=== PATIENT | male | born 1950 | race Caucasian/White ===

== ENCOUNTER 2020-10-31 08:09 | Observation (INO) | payer OTHER, MEDICARE ==
[2020-10-31] MEDS ORDERED: Sodium Chloride 0.9% 1000 ML 1,000 ML ONE ×3 (08:21→13:31)
[2020-10-31] MEDS ORDERED: PROTONIX 40 MG IV IV ONE ×2 (08:31→09:09)
[2020-10-31] MEDS ORDERED: Sodium Chloride 0.9% 1000 ML 1,000 ML IV STA ×3 (09:08→13:29)
[2020-10-31 09:10] LABS: Absolute Neutrophil Ct (ANC) 4.07 (1.4-6.9); BASOPHIL % 0.2 % (0.0-0.4); Basophil (Absolute #) 0.01 (0-0.4); Eosinophil % 0.4 % (0.00-5.0); Eosinophil (Absolute #) 0.02 (0-0.5); Hematocrit 36.5 % (42-50); Hemoglobin 11.7 gm/dl (12.5-18.0); Lymphocytes % 4.5 % (24.0-44.0); Mean Cell Volume 86.1 fl (78-100); Mean Corpuscular Hemoglobin 27.6 pg (26-32); Mean Corpuscular Hgb Concent. 32.1 g/dl (32-36); Mean Platelet Volume 10.1 fl (7.5-11.0); Monocyte (Absolute #) 0.17 (0.0-1.3); Monocytes % 3.8 % (0.0-12.0); Neutrophil % 91.1 % (36.0-66.0); Platelet Count 108 K/mm3 (150-450); Red Blood Count 4.24 M/mm3 (4.1-5.6); Red Cell Distribution Width 14.9 % (11.5-14.0); White Blood Count 4.5 K/mm3 (4.0-10.5)
[2020-10-31 09:35] LABS: ALBUMIN 3.8 g/dL (3.5-5.0); ALKALINE PHOSPHATASE 105 U/L (38-126); ANION GAP 12.9 MEQ/L (5-15); BLOOD UREA NITROGEN 24 mg/dL (9-20); CHLORIDE 102 mmol/L (98-107); Calcium 8.8 mg/dL (8.4-10.2); Carbon Dioxide 21 mmol/L (22-30); Creatinine 1 1.07 mg/dL (0.66-1.25); EST GLOMERULAR FILTRATION RATE > 60.0 ML/MIN; Glucose 137 mg/dL (74-106); LIPASE 118 U/L (23-300); MAGNESIUM 1.3 mg/dL (1.6-2.3); Potassium 3.6 mmol/L (3.5-5.1); SGOT/AST 52 U/L (17-59); SGPT/ALT 35 U/L (0-50); SODIUM 132 mmol/L (137-145); Total Protein 6.5 g/dL (6.3-8.2)
[2020-10-31] MEDS ORDERED: Magnesium 1 Gm / 100 Ml D5W*** 100 ML IV ONE ×2 (10:39→11:23)
[2020-10-31] MEDS: Magnesium 1 Gm / 100 Ml D5W*** 100 ML IV SCH ×2 (10:44→11:24)
[2020-10-31] MEDS ORDERED: LEVOFLOXACIN 750MG/150ML D5W 750 MG/150 ML BAG IV STA (10:58)
--- NOTE | 2020-10-31 10:58 | ERPHSYRPT ---
- History of Present Illness Time Seen by Provider: 10/31/20 08:27 Historian: patient Exam Limitations: no limitations Patient Subjective Stated Complaint: pt for vomiting, and weakness since last night, pt has had problems with hes stomach for a month now and had a scope that was negative, and a ct scan [place] [facility] [place]. Triage Nursing Assessment: pt arrived per ems alert, but poor historian, skin w/d/p, resp easy, placed on o2 at 2 l nc , abd soft Physician History: 70 years old male with a history of diabetes mellitus, Whipple procedure presented to the ER with chief complaint of upper abdominal pain and vomiting off and on since last evening along with generalized weakness fatigue tiredness. Patient is hypotensive when EMS picked him up with pressure around 80s and currently low 90s after 500 mL bag of fluid. Denies any chest pain or palpitations/shortness of breath but his oxygen saturation is dropping to upper 80s, currently on 2 L and 99% denies fever or chills. No known sick contact. Is vaccinated against Kovic 19. Timing/Duration: yesterday, gradual onset, worse Activities at Onset: rest Quality: dullness, sharpness Abdominal Pain Onset Location: RUQ, epigastric, periumbilical Pain Radiation: no radiation Severity of Pain-Max: moderate Severity of Pain-Current: mild Modifying Factors: Improves With: nothing Associated Symptoms: nausea, vomiting Allergies/Adverse Reactions: erythromycin base [From Erythrocin] Allergy (Verified 10/31/20 09:05) Penicillins Allergy (Verified 10/31/20 09:05) Home Medications: Amitriptyline HCl 25 mg [Elavil 25 mg] 1 ea PO HS 10/31/20 [History] Hydrocodone Bit/Acetaminophen [Hydrocodon-Acetaminophn 10-325] 1 ea TID 10/31/20 [History] Metformin HCl 500 mg [Glucophage 500 MG] 500 mg PO BID 10/31/20 [History] Hx Influenza Vaccination/Date Given: No Hx Pneumococcal Vaccination/Date Given: No Immunizations Up to Date: Yes Travel Risk - International Travel Have you traveled outside of the country in past 3 weeks: No - Coronavirus Screening Are you exhibiting any of the following symptoms?: Yes Symptoms: Vomiting/Diarrhea Close contact with a COVID-19 positive Pt in past 14-21 Days: No - Vaccine Status Have you recieved a Covid-19 vaccination: Yes [employer]: Moderna - Vaccination Dates Date of 2cond Vaccination (if applicable): ? - Review of Systems Constitutional: Fatigue, Weakness Eyes: No Symptoms Ears, Nose, & Throat: No Symptoms Respiratory: No Symptoms Cardiac: No Symptoms Abdominal/Gastrointestinal: Abdominal Pain, Nausea, Vomiting Genitourinary Symptoms: No Symptoms Musculoskeletal: Back Pain Skin: No Symptoms Neurological: No Symptoms Psychological: No Symptoms Endocrine: No Symptoms Hematologic/Lymphatic: No Symptoms Immunological/Allergic: No Symptoms - Past Medical History Pertinent Past Medical History: Yes Cardiac History: High Cholesterol Endocrine Medical History: Diabetes Type II - Past Surgical History Past Surgical History: Yes Gastrointestinal: Cholecystectomy, Other Musculoskeletal: Orthopedic Surgery Other Surgical History: back/neck ,wipple - Social History Smoking Status: Never smoker Exposure to second hand smoke: No Drug Use: none Patient Lives Alone: No - Nursing Vital Signs Nursing Vital Signs: Initial Vital Signs Temperature 99.7 F 10/31/20 08:19 Pulse Rate 120 H 10/31/20 08:19 Respiratory Rate 18 10/31/20 08:19 Blood Pressure 91/51 10/31/20 08:19 O2 Sat by Pulse Oximetry 94 L 10/31/20 08:19 Pain Scale Pain Intensity 0 - Physical Exam General Appearance: no apparent distress, alert Eye Exam: PERRL/EOMI, eyes nml inspection Ears, Nose, Throat Exam: normal ENT inspection, TMs normal, pharynx normal, moist mucous membranes Neck Exam: normal inspection, non-tender, supple, full range of motion Respiratory Exam: normal breath sounds, chest tenderness Cardiovascular Exam: normal heart sounds, tachycardia Back Exam: normal inspection, normal range of motion, CVA tenderness Extremity Exam: normal inspection, normal range of motion Neurologic Exam: alert, oriented x 3, cooperative, rodding machine tender II-XII nml as tested, sensation nml, No normal mood/affect Skin Exam: normal color SpO2 Interpretation: normal SpO2: 98 O2 Delivery: Room Air - Course EKG Interpreted by Me: RATE (120), Sinus Tach, NORMAL AXIS, NORMAL INTERVALS, Q- wave (Inferior), Non-specific ST Changes, Other (PVCs) Ordered Tests: Medication Summary Discontinued Medications Generic Name Dose Route Start Last Admin Trade Name Freq PRN Reason Stop Dose Admin Acetaminophen 650 mg 10/31/20 14:20 10/31/20 16:36 Tylenol 325 Mg PO 11/30/20 14:19 650 mg Q4H PRN PRN Administration PAIN AND/OR FEVER Hydrocodone Bitart/Acetaminophen 1 tablet 10/31/20 15:30 11/01/20 15:43 Hydrocodone-Acetamin 10-325 Mg PO 11/05/20 15:29 1 tablet TID SEVEN Administration Amitriptyline HCl 25 mg 10/31/20 22:00 10/31/20 21:15 Elavil 25 Mg PO 11/30/20 21:59 25 mg HS SEVEN Administration Sodium Chloride Confirm 10/31/20 08:21 Sodium Chloride 0.9% 1000 Ml Administered 10/31/20 08:22 Dose 1,000 mls @ ud .ROUTE .STK-MED ONE Sodium Chloride 1,000 mls @ 999 mls/hr 10/31/20 09:08 10/31/20 10:25 Sodium Chloride 0.9% 1000 Ml IV 10/31/20 10:08 Infused .Q1H1M STA Infusion Sodium Chloride Confirm 10/31/20 10:19 Sodium Chloride 0.9% 1000 Ml Administered 10/31/20 10:20 Dose 1,000 mls @ ud .ROUTE .STK-MED ONE Sodium Chloride 1,000 mls @ 999 mls/hr 10/31/20 10:22 10/31/20 11:29 Sodium Chloride 0.9% 1000 Ml IV 10/31/20 11:22 Infused .Q1H1M STA Infusion Magnesium Sulfate/Dextrose 100 mls @ 100 mls/hr 10/31/20 10:45 10/31/20 11:24 Magnesium 1 Gm / 100 Ml D5w IV 10/31/20 12:44 100 mls/hr Q1H SEVEN Administration Levofloxacin/Dextrose 750 mg in 150 mls @ 100 mls/hr 10/31/20 10:58 10/31/20 13:27 Levofloxacin 750mg/150ml D5w IV 10/31/20 12:27 Infused STAT STA Infusion Levofloxacin/Dextrose Confirm 10/31/20 11:56 Levofloxacin 750mg/150ml D5w Administered 10/31/20 11:57 Dose 750 mg in 150 mls @ ud IV .STK-MED ONE Sodium Chloride 1,000 mls @ 999 mls/hr 10/31/20 13:29 10/31/20 13:32 Sodium Chloride 0.9% 1000 Ml IV 10/31/20 14:29 999 mls/hr .Q1H1M STA Administration Sodium Chloride Confirm 10/31/20 13:31 Sodium Chloride 0.9% 1000 Ml Administered 10/31/20 13:32 Dose 1,000 mls @ ud .ROUTE .STK-MED ONE Magnesium Sulfate/Dextrose Confirm 10/31/20 10:39 Magnesium 1 Gm / 100 Ml D5w Administered 10/31/20 10:40 Dose 100 mls @ ud IV .STK-MED ONE Magnesium Sulfate/Dextrose Confirm 10/31/20 11:23 Magnesium 1 Gm / 100 Ml D5w Administered 10/31/20 11:24 Dose 100 mls @ ud IV .STK-MED ONE Potassium Chloride/Sodium Chloride 1,000 mls @ 125 mls/hr 10/31/20 14:20 11/01/20 05:55 Sodium Chloride 0.9% W/ 20 Meq Kcl/Liter IV 11/30/20 14:19 125 mls/hr .Q8H SEVEN Administration Levofloxacin/Dextrose 500 mg in 100 mls @ 100 mls/hr 10/31/20 15:00 11/01/20 08:58 Levofloxacin 500mg/100ml D5w IV 11/30/20 14:59 100 mls/hr Q24H10 SEVEN Administration Insulin Human Lispro 0 unit 10/31/20 14:20 Humalog SQ 11/30/20 14:19 UD PRN HYPERGLYCEMIA Metformin HCl 500 mg 10/31/20 17:00 11/01/20 08:58 Glucophage 500 Mg PO 11/30/20 16:59 500 mg BIDWM SEVEN Administration Ondansetron HCl 4 mg 10/31/20 14:20 Zofran 4 Mg/2 Ml Vial IV 11/30/20 14:19 Q6H PRN PRN NAUSEA/VOMITING Pantoprazole Sodium 40 mg 10/31/20 08:31 10/31/20 09:09 Protonix 40 Mg Iv IV 10/31/20 08:32 40 mg STAT ONE Administration Pantoprazole Sodium Confirm 10/31/20 09:09 Protonix 40 Mg Iv Administered 10/31/20 09:10 Dose 40 mg IV .STK-MED ONE Pantoprazole Sodium 40 mg 11/01/20 10:00 11/01/20 08:59 Protonix 40 Mg Iv IV 12/01/20 09:59 40 mg DAILY SEVEN Administration Lab/Rad Data: Laboratory Result Diagrams 10/31/20 09:11 10/31/20 09:11 Laboratory Results 10/31/20 10/31/20 10/31/20 Range/Units 12:55 12:46 12:00 WBC (4.0-10.5) K/mm3 RBC (4.1-5.6) M/mm3 Hgb (12.5-18.0) gm/dl Hct (42-50) % MCV (78-100) fl MCH (26-32) pg MCHC (32-36) g/dl RDW (11.5-14.0) % Plt Count (150-450) K/mm3 MPV (7.5-11.0) fl Gran % (36.0-66.0) % Eos # (Auto) (0-0.5) Absolute Lymphs (auto) (1.0-4.6) Absolute Monos (auto) (0.0-1.3) Lymphocytes % (24.0-44.0) % Monocytes % (0.0-12.0) % Eosinophils % (0.00-5.0) % Basophils % (0.0-0.4) % Absolute Granulocytes (1.4-6.9) Basophils # (0-0.4) Sodium (137-145) mmol/L Potassium (3.5-5.1) mmol/L Chloride (98-107) mmol/L Carbon Dioxide (22-30) mmol/L Anion Gap (5-15) MEQ/L BUN (9-20) mg/dL Creatinine (0.66-1.25) mg/dL Estimated GFR ML/MIN Glucose (74-106) mg/dL Hemoglobin A1c 6.49 H (4.5-6.0) % Lactic Acid 1.0 (0.4-2.0) Calcium (8.4-10.2) mg/dL Magnesium (1.6-2.3) mg/dL Total Bilirubin (0.2-1.3) mg/dL AST (17-59) U/L ALT (0-50) U/L Alkaline Phosphatase (38-126) U/L Ammonia (9-30) umol/L Creatine Kinase (55-170) U/L Troponin I (0.000-0.034) ng/mL NT-Pro-B Natriuret Pep (0-900) pg/mL Serum Total Protein (6.3-8.2) g/dL Albumin (3.5-5.0) g/dL Lipase (23-300) U/L Urine Color (YELLOW) Urine Appearance (CLEAR) Urine pH (5-6) Ur Specific Pioneer (1.005-1.025) Urine Protein (Negative) Urine Ketones (NEGATIVE) Urine Blood (0-5) Gilbert/ul Urine Nitrite (NEGATIVE) Urine Bilirubin (NEGATIVE) Urine Urobilinogen (0-1) mg/dL Ur Leukocyte Esterase (NEGATIVE) Urine WBC (Auto) (0-5) /HPF Urine RBC (Auto) (0-2) /HPF U Hyaline Cast (Auto) (0-2) /LPF U Epithel Cells (Auto) (FEW) /HPF Urine Bacteria (Auto) (NEGATIVE) /HPF Urine Culture Reflexed (NO) Urine Glucose (NEGATIVE) mg/dL SARS-CoV-2 (PCR) NEGATIVE (NEGATIVE) 10/31/20 10/31/20 10/31/20 Range/Units 12:00 11:30 11:28 WBC (4.0-10.5) K/mm3 RBC (4.1-5.6) M/mm3 Hgb (12.5-18.0) gm/dl Hct (42-50) % MCV (78-100) fl MCH (26-32) pg MCHC (32-36) g/dl RDW (11.5-14.0) % Plt Count (150-450) K/mm3 MPV (7.5-11.0) fl Gran % (36.0-66.0) % Eos # (Auto) (0-0.5) Absolute Lymphs (auto) (1.0-4.6) Absolute Monos (auto) (0.0-1.3) Lymphocytes % (24.0-44.0) % Monocytes % (0.0-12.0) % Eosinophils % (0.00-5.0) % Basophils % (0.0-0.4) % Absolute Granulocytes (1.4-6.9) Basophils # (0-0.4) Sodium (137-145) mmol/L Potassium (3.5-5.1) mmol/L Chloride (98-107) mmol/L Carbon Dioxide (22-30) mmol/L Anion Gap (5-15) MEQ/L BUN (9-20) mg/dL Creatinine (0.66-1.25) mg/dL Estimated GFR ML/MIN Glucose (74-106) mg/dL Hemoglobin A1c (4.5-6.0) % Lactic Acid (0.4-2.0) Calcium (8.4-10.2) mg/dL Magnesium (1.6-2.3) mg/dL Total Bilirubin (0.2-1.3) mg/dL AST (17-59) U/L ALT (0-50) U/L Alkaline Phosphatase (38-126) U/L Ammonia (9-30) umol/L Creatine Kinase 691 H (55-170) U/L Troponin I 0.018 (0.000-0.034) ng/mL NT-Pro-B Natriuret Pep (0-900) pg/mL Serum Total Protein (6.3-8.2) g/dL Albumin (3.5-5.0) g/dL Lipase (23-300) U/L Urine Color YELLOW (YELLOW) Urine Appearance SLIGHTLY CLOUDY (CLEAR) Urine pH 6.0 (5-6) Ur Specific Pioneer 1.016 (1.005-1.025) Urine Protein 30 (Negative) Urine Ketones TRACE (NEGATIVE) Urine Blood NEGATIVE (0-5) Gilbert/ul Urine Nitrite NEGATIVE (NEGATIVE) Urine Bilirubin NEGATIVE (NEGATIVE) Urine Urobilinogen 4 (0-1) mg/dL Ur Leukocyte Esterase NEGATIVE (NEGATIVE) Urine WBC (Auto) 0-2 (0-5) /HPF Urine RBC (Auto) NONE (0-2) /HPF U Hyaline Cast (Auto) 3-5 (0-2) /LPF U Epithel Cells (Auto) NONE (FEW) /HPF Urine Bacteria (Auto) NONE (NEGATIVE) /HPF Urine Culture Reflexed NO (NO) Urine Glucose NEGATIVE (NEGATIVE) mg/dL SARS-CoV-2 (PCR) (NEGATIVE) 10/31/20 10/31/20 10/31/20 Range/Units 11:01 11:01 09:11 WBC (4.0-10.5) K/mm3 RBC (4.1-5.6) M/mm3 Hgb (12.5-18.0) gm/dl Hct (42-50) % MCV (78-100) fl MCH (26-32) pg MCHC (32-36) g/dl RDW (11.5-14.0) % Plt Count (150-450) K/mm3 MPV (7.5-11.0) fl Gran % (36.0-66.0) % Eos # (Auto) (0-0.5) Absolute Lymphs (auto) (1.0-4.6) Absolute Monos (auto) (0.0-1.3) Lymphocytes % (24.0-44.0) % Monocytes % (0.0-12.0) % Eosinophils % (0.00-5.0) % Basophils % (0.0-0.4) % Absolute Granulocytes (1.4-6.9) Basophils # (0-0.4) Sodium (137-145) mmol/L Potassium (3.5-5.1) mmol/L Chloride (98-107) mmol/L Carbon Dioxide (22-30) mmol/L Anion Gap (5-15) MEQ/L BUN (9-20) mg/dL Creatinine (0.66-1.25) mg/dL Estimated GFR ML/MIN Glucose (74-106) mg/dL Hemoglobin A1c (4.5-6.0) % Lactic Acid (0.4-2.0) Calcium (8.4-10.2) mg/dL Magnesium (1.6-2.3) mg/dL Total Bilirubin (0.2-1.3) mg/dL AST (17-59) U/L ALT (0-50) U/L Alkaline Phosphatase (38-126) U/L Ammonia 19 (9-30) umol/L Creatine Kinase (55-170) U/L Troponin I < 0.012 (0.000-0.034) ng/mL NT-Pro-B Natriuret Pep 75.9 (0-900) pg/mL Serum Total Protein (6.3-8.2) g/dL Albumin (3.5-5.0) g/dL Lipase (23-300) U/L Urine Color (YELLOW) Urine Appearance (CLEAR) Urine pH (5-6) Ur Specific Pioneer (1.005-1.025) Urine Protein (Negative) Urine Ketones (NEGATIVE) Urine Blood (0-5) Gilbert/ul Urine Nitrite (NEGATIVE) Urine Bilirubin (NEGATIVE) Urine Urobilinogen (0-1) mg/dL Ur Leukocyte Esterase (NEGATIVE) Urine WBC (Auto) (0-5) /HPF Urine RBC (Auto) (0-2) /HPF U Hyaline Cast (Auto) (0-2) /LPF U Epithel Cells (Auto) (FEW) /HPF Urine Bacteria (Auto) (NEGATIVE) /HPF Urine Culture Reflexed (NO) Urine Glucose (NEGATIVE) mg/dL SARS-CoV-2 (PCR) (NEGATIVE) 10/31/20 10/31/20 Range/Units 09:11 09:11 WBC 4.5 (4.0-10.5) K/mm3 RBC 4.24 (4.1-5.6) M/mm3 Hgb 11.7 L (12.5-18.0) gm/dl Hct 36.5 L (42-50) % MCV 86.1 (78-100) fl MCH 27.6 (26-32) pg MCHC 32.1 (32-36) g/dl RDW 14.9 H (11.5-14.0) % Plt Count 108 L (150-450) K/mm3 MPV 10.1 (7.5-11.0) fl Gran % 91.1 H (36.0-66.0) % Eos # (Auto) 0.02 (0-0.5) Absolute Lymphs (auto) 0.20 L (1.0-4.6) Absolute Monos (auto) 0.17 (0.0-1.3) Lymphocytes % 4.5 L (24.0-44.0) % Monocytes % 3.8 (0.0-12.0) % Eosinophils % 0.4 (0.00-5.0) % Basophils % 0.2 (0.0-0.4) % Absolute Granulocytes 4.07 (1.4-6.9) Basophils # 0.01 (0-0.4) Sodium 132 L (137-145) mmol/L Potassium 3.6 (3.5-5.1) mmol/L Chloride 102 (98-107) mmol/L Carbon Dioxide 21 L (22-30) mmol/L Anion Gap 12.9 (5-15) MEQ/L BUN 24 H (9-20) mg/dL Creatinine 1.07 (0.66-1.25) mg/dL Estimated GFR > 60.0 ML/MIN Glucose 137 H (74-106) mg/dL Hemoglobin A1c (4.5-6.0) % Lactic Acid (0.4-2.0) Calcium 8.8 (8.4-10.2) mg/dL Magnesium 1.3 L (1.6-2.3) mg/dL Total Bilirubin 1.70 H (0.2-1.3) mg/dL AST 52 (17-59) U/L ALT 35 (0-50) U/L Alkaline Phosphatase 105 (38-126) U/L Ammonia (9-30) umol/L Creatine Kinase (55-170) U/L Troponin I (0.000-0.034) ng/mL NT-Pro-B Natriuret Pep (0-900) pg/mL Serum Total Protein 6.5 (6.3-8.2) g/dL Albumin 3.8 (3.5-5.0) g/dL Lipase 118 (23-300) U/L Urine Color (YELLOW) Urine Appearance (CLEAR) Urine pH (5-6) Ur Specific Pioneer (1.005-1.025) Urine Protein (Negative) Urine Ketones (NEGATIVE) Urine Blood (0-5) Gilbert/ul Urine Nitrite (NEGATIVE) Urine Bilirubin (NEGATIVE) Urine Urobilinogen (0-1) mg/dL Ur Leukocyte Esterase (NEGATIVE) Urine WBC (Auto) (0-5) /HPF Urine RBC (Auto) (0-2) /HPF U Hyaline Cast (Auto) (0-2) /LPF U Epithel Cells (Auto) (FEW) /HPF Urine Bacteria (Auto) (NEGATIVE) /HPF Urine Culture Reflexed (NO) Urine Glucose (NEGATIVE) mg/dL SARS-CoV-2 (PCR) (NEGATIVE) - Progress Progress: improved, re-examined Progress Note: 10/31/20 13:39 70 years old diabetic hypertensive, vaccinated against COVID-19 is evaluated for sudden onset nausea vomiting and upper abdominal pain. EKG showed tachycardia without any ST elevations. Patient was mildly hypoxic on presentation and also hypotensive. Given fluid boluses, on reevaluation he is feeling much better and his pressure improved to 101 systolic. Has normal white count, chemistry profile showed some element of dehydration and low magnesium for which she is getting replacement. I have obtained CT chest and abdomen pelvis without contrast which is negative for any acute findings Bentley. Since patient was mildly hypoxic and hypotensive, have given a dose of Levaquin and cultures are p ending currently. Patient later on feeling better and reported that he was working hard outside with some element of rhabdo as well. Patient did urinate after 2 boluses of fluids. I believe he is dehydrated. Discussed with , reviewed history, work-up and current management, agreed with observation admission. Discussed with : Yuan Will see patient in: hospital (observation) Counseled pt/family regarding: lab results, diagnosis, rad results - Departure Departure Disposition: Observation Clinical Impression: Hypomagnesemia, Rhabdomyolysis, Dehydration Hypotension Qualifiers: Hypotension type: unspecified hypotension type Qualified Code(s): I95.9 - Hypot ension, unspecified Condition: Good Critical Care Time: Yes Critical Care Time(excluding separately billable procedures): Critical 30-74 mins
[2020-10-31] MEDS ORDERED: LEVOFLOXACIN 750MG/150ML D5W 750 MG/150 ML BAG IV ONE (11:56)
[2020-10-31 12:12] LABS: Appearance SLIGHTLY CLOUDY (CLEAR); Bilirubin NEGATIVE (NEGATIVE); Blood NEGATIVE Ery/ul (0-5); Glucose NEGATIVE (NEGATIVE); Ketones TRACE (NEGATIVE); Leukocyte Esterase NEGATIVE (NEGATIVE); Nitrite NEGATIVE (NEGATIVE); Protein,Urine Dip 30 (Negative); Specific Gravity 1.016 (1.005-1.025); Urobilinogen 4 mg/dL (0-1); WBC 0-2 /HPF (0-5)
[2020-10-31] MEDS ORDERED: Zofran 4 MG/2 ML VIAL IV PRN (14:20)
[2020-10-31] MEDS ORDERED: TYLENOL 325 MG PO PRN (14:20)
[2020-10-31] MEDS ORDERED: HUMALOG SQ PRN (14:20)
[2020-10-31] MEDS: Levofloxacin 500MG/100ML D5W 500 MG/100 ML BAG IV SCH (14:53)
[2020-10-31] MEDS: HYDROCODONE-ACETAMIN 10-325 MG PO SCH ×2 (15:48→21:15)
[2020-10-31] MEDS: Sodium Chloride 0.9% W/ 20 mEq KCl/LITER 1,000 ML IV SCH ×2 (15:48→22:16)
[2020-10-31] MEDS: Glucophage 500 MG PO SCH (16:19)
--- NOTE | 2020-10-31 17:56 | XRAY ---
Indication: General weakness. Nausea and vomiting. Suspect Covid 19. Multiple contiguous axial images obtained through the chest without contrast. Comparison: None Lungs demonstrates minimal bilateral dependent atelectasis. No suspicious pulmonary mass, nodule, infiltrate, or effusion. Heart not enlarged. Ascending aorta is prominent up to 4.4 cm with minimal aortic arch calcifications. Descending aorta unremarkable.. No pathologic mediastinal lymphadenopathy. Bony thorax intact with mild osteopenia and mild degenerative changes throughout the spine. CT abdomen/pelvis reported separately. Impression: 1. Prominent ascending aorta, bibasilar dependent atelectasis, and chronic bony findings. 2. Remaining CT chest without contrast exam is negative. Comment: Preliminary interpretation made by C. No critical discrepancy.
--- NOTE | 2020-10-31 18:02 | XRAY ---
Indication: General weakness. Nausea and vomiting. Suspect Covid 19. History Whipple's procedure. Multiple contiguous axial images obtained through the abdomen and pelvis without contrast. Comparison: None CT chest reported separately. Noncontrasted stomach and bowel loops appear nonobstructed with normal appendix. Mild scattered fecal debris in the descending, sigmoid, and rectum. Status post Whipple procedure with minimal pneumobilia. Right lobe of the liver demonstrates heterogeneity in the dome of the diaphragm. Left upper 3.8 cm exophytic renal cyst. No free fluid/air. Incidental 14.7 cm splenomegaly. Remaining liver, pancreas, spleen, adrenal glands, kidneys, ureters, and bladder are unremarkable for noncontrast exam. Minimal aortoiliac calcifications without AAA. Osseous structures intact with mild osteopenia, mild degenerative changes throughout the spine, and L4-L5 fusion with intact posterior fixation hardware. Impression: 1. Right hepatic heterogeneity. Comparison studies recommended if available. If not, CT or MRI liver with contrast may yield further information. 2. Mild left hemicolon fecal stasis, left renal cyst, splenomegaly, and chronic bony findings. Comment: Preliminary interpretation made by [facility]. No critical discrepancy.
[2020-10-31] MEDS ORDERED: ELAVIL 25 MG PO SCH (22:00)
[2020-11-01 05:37] LABS: Absolute Neutrophil Ct (ANC) 5.87 (1.4-6.9); BASOPHIL % 0.1 % (0.0-0.4); Basophil (Absolute #) 0.01 (0-0.4); Eosinophil % 0.3 % (0.00-5.0); Eosinophil (Absolute #) 0.02 (0-0.5); Hematocrit 33.7 % (42-50); Hemoglobin 10.6 gm/dl (12.5-18.0); Lymphocyte (Absolute #) 0.78 (1.0-4.6); Lymphocytes % 10.5 % (24.0-44.0); Mean Cell Volume 86.9 fl (78-100); Mean Corpuscular Hemoglobin 27.3 pg (26-32); Mean Corpuscular Hgb Concent. 31.5 g/dl (32-36); Mean Platelet Volume 10.1 fl (7.5-11.0); Monocyte (Absolute #) 0.75 (0.0-1.3); Monocytes % 10.1 % (0.0-12.0); Platelet Count 77 K/mm3 (150-450); Red Blood Count 3.88 M/mm3 (4.1-5.6); Red Cell Distribution Width 15.4 % (11.5-14.0); White Blood Count 7.4 K/mm3 (4.0-10.5)
[2020-11-01] MEDS: Sodium Chloride 0.9% W/ 20 mEq KCl/LITER 1,000 ML IV SCH (05:55)
[2020-11-01 06:00] LABS: ALBUMIN 3.2 g/dL (3.5-5.0); ALKALINE PHOSPHATASE 84 U/L (38-126); ANION GAP 10.5 MEQ/L (5-15); BLOOD UREA NITROGEN 26 mg/dL (9-20); CHLORIDE 105 mmol/L (98-107); Calcium 8.1 mg/dL (8.4-10.2); Carbon Dioxide 23 mmol/L (22-30); Creatinine 1 1.02 mg/dL (0.66-1.25); EST GLOMERULAR FILTRATION RATE > 60.0 ML/MIN; Glucose 102 mg/dL (74-106); Potassium 4.4 mmol/L (3.5-5.1); SGOT/AST 124 U/L (17-59); SGPT/ALT 64 U/L (0-50); SODIUM 134 mmol/L (137-145); Total Protein 5.8 g/dL (6.3-8.2)
[2020-11-01] MEDS: Glucophage 500 MG PO SCH (08:58)
[2020-11-01] MEDS: HYDROCODONE-ACETAMIN 10-325 MG PO SCH ×2 (08:58→15:43)
[2020-11-01] MEDS: Levofloxacin 500MG/100ML D5W 500 MG/100 ML BAG IV SCH (08:58)
[2020-11-01] MEDS ORDERED: PROTONIX 40 MG IV IV SCH (10:00)
[2020-11-01 11:21] LABS: Slide Review 1 YES
--- NOTE | 2020-11-01 13:24 | PCM.HP ---
History of Present Illness - Chief Complaint Chief Complaint: weakness for 1-2 days, abdominal pain for 1 day History of Present Illness: is a 70 year old male.with a history of diabetes mellitus, Whipple procedure presented to the ER with chief complaint of upper abdominal pain and vomiting off and on since last evening along with generalized weakness fatigue tiredness. Patient is hypotensive when EMS picked him up with pressure around 80s and currently low 90s after 500 mL bag of fluid. Denies any chest pain or palpitations/shortness of breath but his oxygen saturation is dropping to upper 80s, currently on 2 L and 99% denies fever or chills. No known sick contact. Is vaccinated against [place] 19. - Review of Systems Constitutional: No Fever, No Chills Eyes: No Symptoms Ears, Nose, & Throat: No Symptoms Respiratory: No Cough, No Short Of Breath Cardiac: No Chest Pain, No Edema, No Syncope Abdominal/Gastrointestinal: Abdominal Pain, Nausea, Vomiting, No Diarrhea Genitourinary Symptoms: No Dysuria Musculoskeletal: No Back Pain, No Neck Pain Skin: No Rash Neurological: No Dizziness, No Focal Weakness, No Sensory Changes Psychological: No Symptoms Endocrine: No Symptoms Hematologic/Lymphatic: No Symptoms Immunological/Allergic: No Symptoms Medications & Allergies Home Medications: Home Medication List Amitriptyline HCl 25 mg [Elavil 25 mg] 1 ea PO HS 10/31/20 [History Confirmed 10/31/20] Hydrocodone Bit/Acetaminophen [Hydrocodon-Acetaminophn 10-325] 1 ea TID 10/31/20 [History Confirmed 10/31/20] Metformin HCl 500 mg [Glucophage 500 MG] 500 mg PO BID 10/31/20 [History Confirmed 10/31/20] Allergies/Adverse Reactions: Allergies Allergy/AdvReac Type Severity Reaction Status Date / Time erythromycin base Allergy Verified 10/31/20 09:05 [From Erythrocin] Penicillins Allergy Verified 10/31/20 09:05 - Past Medical History Past Medical History: Yes Cardiac History: High Cholesterol Endocrine Medical History: Diabetes Type II - Past Surgical History Past Surgical History: Yes GI Surgical History: Cholecystectomy, Other Musculskeletal Surgical Hx: Orthopedic Surgery Other Surgical History: back/neck ,wipple - Social History Smoking Status: Never smoker Exposure to second hand smoke: No Alcohol: None Drug Use: none - Physical Exam Vital Signs: Vital Signs - 24 hr Temp Pulse Resp BP Pulse Ox 11/01/20 11:57 97.3 F 69 18 120/68 96 11/01/20 07:55 97.6 F 59 L 18 103/62 98 11/01/20 04:00 97.5 F 65 12 98/63 96 11/01/20 00:47 98 11/01/20 00:00 97.7 F 71 16 84/51 95 10/31/20 20:00 97.9 F 93 H 20 86/51 94 L 10/31/20 19:21 92 L 10/31/20 17:42 99.3 F 10/31/20 16:36 103.2 F 119 H 22 141/76 92 L 10/31/20 14:44 97.7 F 105 H 17 163/71 96 10/31/20 14:30 97.7 F 105 H 17 163/71 96 10/31/20 14:08 90 16 117/69 99 General Appearance: no apparent distress, alert Neurologic Exam: alert, oriented x 3, cooperative, normal mood/affect, nml cerebellar function, nml station & gait, sensation nml, No motor deficits Eye Exam: PERRL/EOMI, eyes nml inspection Ears, Nose, Throat Exam: normal ENT inspection, TMs normal, pharynx normal, moist mucous membranes Neck Exam: normal inspection, non-tender, supple, full range of motion Respiratory Exam: normal breath sounds, lungs clear, No respiratory distress Cardiovascular Exam: regular rate/rhythm, normal heart sounds, normal peripheral pulses Gastrointestinal/Abdomen Exam: soft, normal bowel sounds, No tenderness, No mass Back Exam: normal inspection, normal range of motion, No CVA tenderness, No vertebral tenderness Extremity Exam: normal inspection, normal range of motion, pelvis stable Skin Exam: normal color, warm, dry, No rash Lymphatic Exam: No adenopathy Results - Labs Lab/Micro Results: Lab Results-Last 24 Hours 10/31/20 10/31/20 10/31/20 Range/Units 12:00 12:46 14:30 WBC (4.0-10.5) K/mm3 RBC (4.1-5.6) M/mm3 Hgb (12.5-18.0) gm/dl Hct (42-50) % MCV (78-100) fl MCH (26-32) pg MCHC (32-36) g/dl RDW (11.5-14.0) % Plt Count (150-450) K/mm3 MPV (7.5-11.0) fl Gran % (36.0-66.0) % Eos # (Auto) (0-0.5) Absolute Lymphs (auto) (1.0-4.6) Absolute Monos (auto) (0.0-1.3) Lymphocytes % (24.0-44.0) % Monocytes % (0.0-12.0) % Eosinophils % (0.00-5.0) % Basophils % (0.0-0.4) % Absolute Granulocytes (1.4-6.9) Basophils # (0-0.4) Sodium (137-145) mmol/L Potassium (3.5-5.1) mmol/L Chloride (98-107) mmol/L Carbon Dioxide (22-30) mmol/L Anion Gap (5-15) MEQ/L BUN (9-20) mg/dL Creatinine (0.66-1.25) mg/dL Estimated GFR ML/MIN Glucose (74-106) mg/dL POC Glucometer (74 to 106) mg/dL Hemoglobin A1c 6.49 H (4.5-6.0) % Calcium (8.4-10.2) mg/dL Magnesium (1.6-2.3) mg/dL Total Bilirubin (0.2-1.3) mg/dL AST (17-59) U/L ALT (0-50) U/L Alkaline Phosphatase (38-126) U/L Troponin I 0.045 H* (0.000-0.034) ng/mL Serum Total Protein (6.3-8.2) g/dL Albumin (3.5-5.0) g/dL SARS-CoV-2 (PCR) NEGATIVE (NEGATIVE) Slides for Path Review 10/31/20 10/31/20 10/31/20 Range/Units 16:25 17:58 20:44 WBC (4.0-10.5) K/mm3 RBC (4.1-5.6) M/mm3 Hgb (12.5-18.0) gm/dl Hct (42-50) % MCV (78-100) fl MCH (26-32) pg MCHC (32-36) g/dl RDW (11.5-14.0) % Plt Count (150-450) K/mm3 MPV (7.5-11.0) fl Gran % (36.0-66.0) % Eos # (Auto) (0-0.5) Absolute Lymphs (auto) (1.0-4.6) Absolute Monos (auto) (0.0-1.3) Lymphocytes % (24.0-44.0) % Monocytes % (0.0-12.0) % Eosinophils % (0.00-5.0) % Basophils % (0.0-0.4) % Absolute Granulocytes (1.4-6.9) Basophils # (0-0.4) Sodium (137-145) mmol/L Potassium (3.5-5.1) mmol/L Chloride (98-107) mmol/L Carbon Dioxide (22-30) mmol/L Anion Gap (5-15) MEQ/L BUN (9-20) mg/dL Creatinine (0.66-1.25) mg/dL Estimated GFR ML/MIN Glucose (74-106) mg/dL POC Glucometer 135 H (74 to 106) mg/dL Hemoglobin A1c (4.5-6.0) % Calcium (8.4-10.2) mg/dL Magnesium (1.6-2.3) mg/dL Total Bilirubin (0.2-1.3) mg/dL AST (17-59) U/L ALT (0-50) U/L Alkaline Phosphatase (38-126) U/L Troponin I 0.085 H* 0.103 H* (0.000-0.034) ng/mL Serum Total Protein (6.3-8.2) g/dL Albumin (3.5-5.0) g/dL SARS-CoV-2 (PCR) (NEGATIVE) Slides for Path Review 10/31/20 11/01/20 11/01/20 Range/Units 22:17 04:24 04:24 WBC 7.4 (4.0-10.5) K/mm3 RBC 3.88 L (4.1-5.6) M/mm3 Hgb 10.6 L (12.5-18.0) gm/dl Hct 33.7 L (42-50) % MCV 86.9 (78-100) fl MCH 27.3 (26-32) pg MCHC 31.5 L (32-36) g/dl RDW 15.4 H (11.5-14.0) % Plt Count 77 L (150-450) K/mm3 MPV 10.1 (7.5-11.0) fl Gran % 79.0 H (36.0-66.0) % Eos # (Auto) 0.02 (0-0.5) Absolute Lymphs (auto) 0.78 L (1.0-4.6) Absolute Monos (auto) 0.75 (0.0-1.3) Lymphocytes % 10.5 L (24.0-44.0) % Monocytes % 10.1 (0.0-12.0) % Eosinophils % 0.3 (0.00-5.0) % Basophils % 0.1 (0.0-0.4) % Absolute Granulocytes 5.87 (1.4-6.9) Basophils # 0.01 (0-0.4) Sodium 134 L (137-145) mmol/L Potassium 4.4 D (3.5-5.1) mmol/L Chloride 105 (98-107) mmol/L Carbon Dioxide 23 (22-30) mmol/L Anion Gap 10.5 (5-15) MEQ/L BUN 26 H (9-20) mg/dL Creatinine 1.02 (0.66-1.25) mg/dL Estimated GFR > 60.0 ML/MIN Glucose 102 (74-106) mg/dL POC Glucometer 146 H (74 to 106) mg/dL Hemoglobin A1c (4.5-6.0) % Calcium 8.1 L (8.4-10.2) mg/dL Magnesium (1.6-2.3) mg/dL Total Bilirubin 1.10 (0.2-1.3) mg/dL AST 124 H (17-59) U/L ALT 64 H (0-50) U/L Alkaline Phosphatase 84 (38-126) U/L Troponin I (0.000-0.034) ng/mL Serum Total Protein 5.8 L (6.3-8.2) g/dL Albumin 3.2 L (3.5-5.0) g/dL SARS-CoV-2 (PCR) (NEGATIVE) Slides for Path Review YES 11/01/20 11/01/20 11/01/20 Range/Units 04:24 08:08 08:27 WBC (4.0-10.5) K/mm3 RBC (4.1-5.6) M/mm3 Hgb (12.5-18.0) gm/dl Hct (42-50) % MCV (78-100) fl MCH (26-32) pg MCHC (32-36) g/dl RDW (11.5-14.0) % Plt Count (150-450) K/mm3 MPV (7.5-11.0) fl Gran % (36.0-66.0) % Eos # (Auto) (0-0.5) Absolute Lymphs (auto) (1.0-4.6) Absolute Monos (auto) (0.0-1.3) Lymphocytes % (24.0-44.0) % Monocytes % (0.0-12.0) % Eosinophils % (0.00-5.0) % Basophils % (0.0-0.4) % Absolute Granulocytes (1.4-6.9) Basophils # (0-0.4) Sodium (137-145) mmol/L Potassium (3.5-5.1) mmol/L Chloride (98-107) mmol/L Carbon Dioxide (22-30) mmol/L Anion Gap (5-15) MEQ/L BUN (9-20) mg/dL Creatinine (0.66-1.25) mg/dL Estimated GFR ML/MIN Glucose (74-106) mg/dL POC Glucometer 88 (74 to 106) mg/dL Hemoglobin A1c (4.5-6.0) % Calcium (8.4-10.2) mg/dL Magnesium 1.8 (1.6-2.3) mg/dL Total Bilirubin (0.2-1.3) mg/dL AST (17-59) U/L ALT (0-50) U/L Alkaline Phosphatase (38-126) U/L Troponin I 0.045 H* (0.000-0.034) ng/mL Serum Total Protein (6.3-8.2) g/dL Albumin (3.5-5.0) g/dL SARS-CoV-2 (PCR) (NEGATIVE) Slides for Path Review 11/01/20 Range/Units 11:38 WBC (4.0-10.5) K/mm3 RBC (4.1-5.6) M/mm3 Hgb (12.5-18.0) gm/dl Hct (42-50) % MCV (78-100) fl MCH (26-32) pg MCHC (32-36) g/dl RDW (11.5-14.0) % Plt Count (150-450) K/mm3 MPV (7.5-11.0) fl Gran % (36.0-66.0) % Eos # (Auto) (0-0.5) Absolute Lymphs (auto) (1.0-4.6) Absolute Monos (auto) (0.0-1.3) Lymphocytes % (24.0-44.0) % Monocytes % (0.0-12.0) % Eosinophils % (0.00-5.0) % Basophils % (0.0-0.4) % Absolute Granulocytes (1.4-6.9) Basophils # (0-0.4) Sodium (137-145) mmol/L Potassium (3.5-5.1) mmol/L Chloride (98-107) mmol/L Carbon Dioxide (22-30) mmol/L Anion Gap (5-15) MEQ/L BUN (9-20) mg/dL Creatinine (0.66-1.25) mg/dL Estimated GFR ML/MIN Glucose (74-106) mg/dL POC Glucometer 107 H (74 to 106) mg/dL Hemoglobin A1c (4.5-6.0) % Calcium (8.4-10.2) mg/dL Magnesium (1.6-2.3) mg/dL Total Bilirubin (0.2-1.3) mg/dL AST (17-59) U/L ALT (0-50) U/L Alkaline Phosphatase (38-126) U/L Troponin I (0.000-0.034) ng/mL Serum Total Protein (6.3-8.2) g/dL Albumin (3.5-5.0) g/dL SARS-CoV-2 (PCR) (NEGATIVE) Slides for Path Review Microbiology 10/31/20 08:50 Blood Culture Gram Stain - Final Blood Blood Culture - Preliminary GRAM NEGATIVE ID AND SENSITIVITY PENDING 10/31/20 09:00 Blood Culture Gram Stain - Final Blood Blood Culture - Preliminary GRAM NEGATIVE ID AND SENSITIVITY PENDING Accuchecks Date 11/01/20 Date 11/01/20 Date 10/31/20 Time 16:36 - Radiology Impressions Radiology Exams & Impressions: Radiology Procedures Category Date Time Status ABDOMEN AND PELVIS W/0 CONTRAS [CT] Stat Exams 10/31/20 09:14 Completed CHEST WITHOUT CONTRAST [CT] Stat Exams 10/31/20 09:11 Completed - Other Procedures and Tests Respiratory Therapy 10/31/20 14:20 Oxygen Nasal Cannula 2 lpm Assessment/Plan (1) CAD (coronary artery disease) Current Visit: Yes Status: Acute Code(s): I25.10 - ATHSCL HEART DISEASE OF [place] CORONARY ARTERY W/O ANG PCTRS (2) Dehydration Current Visit: Yes Status: Acute Code(s): E86.0 - DEHYDRATION (3) Hypomagnesemia Current Visit: Yes Status: Acute Code(s): E83.42 - HYPOMAGNESEMIA (4) Rhabdomyolysis Current Visit: Yes Status: Acute Qualifiers: Rhabdomyolysis type: non-traumatic Qualified Code(s): M62.82 - Rhabdomyolysis Code(s): M62.82 - RHABDOMYOLYSIS (5) Type 2 diabetes mellitus Current Visit: Yes Status: Acute Qualifiers: Diabetes mellitus care home insulin use: with care home use Diabetes mellitus complication status: with hyperglycemia Qualified Code(s): E11.65 - Type 2 diabetes mellitus with hyperglycemia; Z79.4 - shelter (current) use of insulin
[2020-11-01 16:07] VITALS: BP 114/68; PULSE 59
--- NOTE | 2020-11-02 17:26 | PCM.DS ---
Discharge Summary Date of Admission: 10/31/20 14:15 Admitting Physician: DAGO PABLO Primary Care Provider: AMITA TURNER Allergies Allergies erythromycin base [From Erythrocin] Allergy (Verified 10/31/20 09:05) Penicillins Allergy (Verified 10/31/20 09:05) Hospital Summary - Hospital Course Hospital Course: Chief Complaint Diagnosis weakness for 1-2 days, abdominal pain for 1 day Allergies Allergy/AdvReac Type Severity Reaction Status Date / Time erythromycin base Allergy Verified 10/31/20 09:05 [From Erythrocin] Penicillins Allergy Verified 10/31/20 09:05 Home Medications Medication Instructions Recorded Confirmed Last Taken Type Amitriptyline HCl 25 mg [Elavil 1 ea PO HS 10/31/20 10/31/20 10/30/20 History 25 mg] Hydrocodone Bit/Acetaminophen 1 ea TID 10/31/20 10/31/20 Unknown History [Hydrocodon-Acetaminophn 10-325] Metformin HCl 500 mg 500 mg PO BID 10/31/20 10/31/20 10/30/20 History [Glucophage 500 MG] Current Medications Discontinued Medications Generic Name Dose Route Start Last Admin Trade Name Freq PRN Reason Stop Dose Admin Acetaminophen 650 mg 10/31/20 14:20 10/31/20 16:36 Tylenol 325 Mg PO 11/30/20 14:19 650 mg Q4H PRN PRN Administration PAIN AND/OR FEVER Hydrocodone Bitart/Acetaminophen 1 tablet 10/31/20 15:30 11/01/20 15:43 Hydrocodone-Acetamin 10-325 Mg PO 11/05/20 15:29 1 tablet TID SEVEN Administration Amitriptyline HCl 25 mg 10/31/20 22:00 10/31/20 21:15 Elavil 25 Mg PO 11/30/20 21:59 25 mg HS SEVEN Administration Sodium Chloride Confirm 10/31/20 08:21 Sodium Chloride 0.9% 1000 Ml Administered 10/31/20 08:22 Dose 1,000 mls @ ud .ROUTE .STK-MED ONE Sodium Chloride 1,000 mls @ 999 mls/hr 10/31/20 09:08 10/31/20 10:25 Sodium Chloride 0.9% 1000 Ml IV 10/31/20 10:08 Infused .Q1H1M STA Infusion Sodium Chloride Confirm 10/31/20 10:19 Sodium Chloride 0.9% 1000 Ml Administered 10/31/20 10:20 Dose 1,000 mls @ ud .ROUTE .STK-MED ONE Sodium Chloride 1,000 mls @ 999 mls/hr 10/31/20 10:22 10/31/20 11:29 Sodium Chloride 0.9% 1000 Ml IV 10/31/20 11:22 Infused .Q1H1M STA Infusion Magnesium Sulfate/Dextrose 100 mls @ 100 mls/hr 10/31/20 10:45 10/31/20 11:24 Magnesium 1 Gm / 100 Ml D5w IV 10/31/20 12:44 100 mls/hr Q1H SEVEN Administration Levofloxacin/Dextrose 750 mg in 150 mls @ 100 mls/hr 10/31/20 10:58 10/31/20 13:27 Levofloxacin 750mg/150ml D5w IV 10/31/20 12:27 Infused STAT STA Infusion Levofloxacin/Dextrose Confirm 10/31/20 11:56 Levofloxacin 750mg/150ml D5w Administered 10/31/20 11:57 Dose 750 mg in 150 mls @ ud IV .STK-MED ONE Sodium Chloride 1,000 mls @ 999 mls/hr 10/31/20 13:29 10/31/20 13:32 Sodium Chloride 0.9% 1000 Ml IV 10/31/20 14:29 999 mls/hr .Q1H1M STA Administration Sodium Chloride Confirm 10/31/20 13:31 Sodium Chloride 0.9% 1000 Ml Administered 10/31/20 13:32 Dose 1,000 mls @ ud .ROUTE .STK-MED ONE Magnesium Sulfate/Dextrose Confirm 10/31/20 10:39 Magnesium 1 Gm / 100 Ml D5w Administered 10/31/20 10:40 Dose 100 mls @ ud IV .STK-MED ONE Magnesium Sulfate/Dextrose Confirm 10/31/20 11:23 Magnesium 1 Gm / 100 Ml D5w Administered 10/31/20 11:24 Dose 100 mls @ ud IV .STK-MED ONE Potassium Chloride/Sodium Chloride 1,000 mls @ 125 mls/hr 10/31/20 14:20 11/01/20 05:55 Sodium Chloride 0.9% W/ 20 Meq Kcl/Liter IV 11/30/20 14:19 125 mls/hr .Q8H SEVEN Administration Levofloxacin/Dextrose 500 mg in 100 mls @ 100 mls/hr 10/31/20 15:00 11/01/20 08:58 Levofloxacin 500mg/100ml D5w IV 11/30/20 14:59 100 mls/hr Q24H10 SEVEN Administration Insulin Human Lispro 0 unit 10/31/20 14:20 Humalog SQ 11/30/20 14:19 UD PRN HYPERGLYCEMIA Metformin HCl 500 mg 10/31/20 17:00 11/01/20 08:58 Glucophage 500 Mg PO 11/30/20 16:59 500 mg BIDWM SEVEN Administration Ondansetron HCl 4 mg 10/31/20 14:20 Zofran 4 Mg/2 Ml Vial IV 11/30/20 14:19 Q6H PRN PRN NAUSEA/VOMITING Pantoprazole Sodium 40 mg 10/31/20 08:31 10/31/20 09:09 Protonix 40 Mg Iv IV 10/31/20 08:32 40 mg STAT ONE Administration Pantoprazole Sodium Confirm 10/31/20 09:09 Protonix 40 Mg Iv Administered 10/31/20 09:10 Dose 40 mg IV .STK-MED ONE Pantoprazole Sodium 40 mg 11/01/20 10:00 11/01/20 08:59 Protonix 40 Mg Iv IV 12/01/20 09:59 40 mg DAILY SEVEN Administration Intake & Output (Last 24 hours) 10/31/20 11/01/20 11/02/20 11/03/20 11:59 11:59 11:59 11:59 Intake Total 3447 480 Output Total 3090 1000 Balance 357 -520 Weight 97 kg 99.4 kg Microbiology Results (Last 24 hours) 10/31/20 09:00 Blood Blood Culture Gram Stain - Final 10/31/20 09:00 Blood Blood Culture - Preliminary GRAM NEGATIVE ID AND SENSITIVITY PENDING 10/31/20 08:50 Blood Blood Culture Gram Stain - Final 10/31/20 08:50 Blood Blood Culture - Final Klebsiella Pneumoniae - Vitals & Intake/Output Vital Signs: Vital Signs Temperature 97.9 F 11/01/20 16:00 Pulse Rate 59 L 11/01/20 16:00 Respiratory Rate 18 11/01/20 16:00 Blood Pressure 114/68 11/01/20 16:00 O2 Sat by Pulse Oximetry 97 11/01/20 16:00 Intake & Output: Intake & Output 10/31/20 11/01/20 11/02/20 11/03/20 11:59 11:59 11:59 11:59 Intake Total 3447 480 Output Total 3090 1000 Balance 357 -520 Weight 97 kg 99.4 kg - Lab Result Diagrams: 11/01/20 04:24 11/01/20 04:24 Micro Results-Entire Visit: Microbiology 10/31/20 09:00 Blood Culture Gram Stain - Final Blood Blood Culture - Preliminary GRAM NEGATIVE ID AND SENSITIVITY PENDING 10/31/20 08:50 Blood Culture Gram Stain - Final Blood Blood Culture - Final Klebsiella Pneumoniae - Procedures and Test Procedures and Tests throughout Hospitalization: Therapy Orders & Screens 10/31/20 14:20 Oxygen Nasal Cannula 2 lpm Comment: Discharge Exam General Appearance: no apparent distress, alert Neurologic Exam: alert, oriented x 3, cooperative, normal mood/affect, nml cerebellar function, sensation nml, No motor deficits Eye Exam: PERRL, EOMI, eyes nml inspection Ears, Nose, Throat Exam: normal ENT inspection, pharynx normal, moist mucous membranes Neck Exam: normal inspection, non-tender, supple, full range of motion Respiratory Exam: normal breath sounds, lungs clear, No respiratory distress Cardiovascular Exam: regular rate/rhythm, normal heart sounds Gastrointestinal/Abdomen Exam: soft, No tenderness, No mass Male Genitalia Exam: deferred Rectal Exam: deferred Back Exam: normal inspection, normal range of motion, No CVA tenderness, No vertebral tenderness Extremity Exam: normal inspection, normal range of motion Skin Exam: normal color, warm, dry Final Diagnosis/Problem List - Final Discharge Diagnosis/Problem (1) Rhabdomyolysis Status: Resolved Code(s): M62.82 - RHABDOMYOLYSIS (2) Dehydration Status: Resolved Code(s): E86.0 - DEHYDRATION (3) CAD (coronary artery disease) Status: Chronic Code(s): I25.10 - ATHSCL HEART DISEASE OF [place] CORONARY ARTERY W/O ANG PCTRS (4) Hypomagnesemia Status: Resolved Code(s): E83.42 - HYPOMAGNESEMIA (5) Type 2 diabetes mellitus Status: Chronic - Discharge Discharge Date: 11/01/20 Disposition: Home, Self-Care Condition: Good Prescriptions: No Action Metformin HCl 500 mg [Glucophage 500 MG] 500 mg PO BID Hydrocodone Bit/Acetaminophen [Hydrocodon-Acetaminophn 10-325] 1 ea TID Amitriptyline HCl 25 mg [Elavil 25 mg] 1 ea PO HS Instructions: Dehydration, Adult (DC) Follow up with: AMITA TURNER PA [Primary Care Provider] - Forms: Discharge Instructions
[2020-11-04 11:53] VITALS: O2SAT 98
== END 2020-11-01 16:30 | disposition home or self-care (01) ==
LOC: ED 08:09 → MED SURG 14:15
PROVIDERS: ADMIT General Practice; ATTEND General Practice
DX: M62.82 Rhabdomyolysis (principal); E86.0 Dehydration; R10.11 Right upper quadrant pain; E11.9 Type 2 diabetes mellitus without complications; E83.42 Hypomagnesemia; R53.1 Weakness; E78.00 Pure hypercholesterolemia, unspecified; R11.2 Nausea with vomiting, unspecified; Z79.899 Other long term (current) drug therapy; I25.10 Atherosclerotic heart disease of native coronary artery without angina pectoris; Z20.822 Contact with and (suspected) exposure to COVID-19
CPT/HCPCS: 36415; 71250; 74176; 80053; 81001; 82140; 82550; 82947; 83036; 83605; 83690; 83735; 83880; 84484; 85025; 87040; 87077; 87186; 93005; 93268; 94760; 96360; 96361; 96365; 96366; 96367; 96374; 99285; 99291; G0378; U0003; J1956; J3475; A9270-GY